=== PATIENT | female | born 1945 | race Caucasian/White ===

== ENCOUNTER → 2016-08-06 | Outpatient (CLI) | payer MEDICARE, MEDICAID ==
[~2016-08-06] VITALS: Ht 167.6 cm; Wt 56.8 kg
[~2016-08-06] MED LIST: CEFTIN 250250 MG/TAB PO; COLACE 100100 MG/CAP PO; DECADRON 4MG TAB4 MG PO; DIFLUCAN 100MG100 MG PO; DULCOLAX S10 MG/SUPP RC; MAG-OX 400400 MG/TAB PO; MEGACE ORAL40 MG/ML PO; MIRALAX PA17 GM/Dose PO; NORCO 325 MG-51 TAB PO; NORVASC 5MG5 MG/TAB PO; PREDNISONE10 MG PO; RT ADVAIR HFA 1112 G IH; RT SPIRIVA18 MCG IH; TIROSINT50 MCG PO; TIROSINT75 MC1 PO; TYLENOL 325MG325 MG PO
[2016-08-06 14:10] VITALS: BP 154/107; PULSE 76
[2016-08-06 15:15] VITALS: BP 147/99; PULSE 71
== END ==
LOC: COL.RAD 13:41
DX: C77.4 Secondary and unspecified malignant neoplasm of inguinal and lower limb lymph nodes (principal); C34.11 Malignant neoplasm of upper lobe, right bronchus or lung; C79.31 Secondary malignant neoplasm of brain; I10 Essential (primary) hypertension
CPT/HCPCS: 13756

== ENCOUNTER → 2016-10-01 | Outpatient (CLI) | payer MEDICARE, MEDICAID | LOC: COL.RAD 09:00 | DX: C34.90 Malignant neoplasm of unspecified part of unspecified bronchus or lung (principal); C79.31 Secondary malignant neoplasm of brain | CPT/HCPCS: A9585 ==

== ENCOUNTER 2016-11-08 10:31 | Inpatient (IN) | payer MEDICARE, MEDICAID ==
[~2016-11-08] VITALS: Ht 165.1 cm; Wt 54.3 kg
[~2016-11-08 10:31] MED LIST changes: -CEFTIN 250250 MG/TAB PO; -COLACE 100100 MG/CAP PO; -DULCOLAX S10 MG/SUPP RC; -MAG-OX 400400 MG/TAB PO; -MEGACE ORAL40 MG/ML PO; -MIRALAX PA17 GM/Dose PO; -NORCO 325 MG-51 TAB PO; -PREDNISONE10 MG PO; -TYLENOL 325MG325 MG PO
[2016-11-08 12:16] LABS: PH 5 (5-8); URINE APPEARANCE Cloudy; URINE BACTERIA Rare /hpf; URINE BILIRUBIN Negative (NEGATIVE); URINE BLOOD 1+ (NEGATIVE); URINE COLOR Amber; URINE GLUCOSE Negative (NEGATIVE); URINE KETONE 1+ (NEGATIVE)
[2016-11-08 12:17] LABS: URINE WBC >50 /hpf
[2016-11-08 12:50] LABS: BASO % 0.4 % (0.0-2.0); EOS % 0.3 % (0-4.0); GRAN # 5.8 (1.4-6.5); GRAN % 74.8 % (42.2-75.2); HEMATOCRIT 38.7 % (37.0-47.0); HEMOGLOBIN 12.7 g/dl (12.5-16.0); LYMPH # 0.8 (1.2-3.4); LYMPH % 10.7 % (20.0-51.0); MEAN CELL VOLUME 107 fl (80.0-100.0); MEAN CORPUSCULAR HEMOGLOBIN 35 pg (27.0-31.0); MEAN CORPUSCULAR HGB CONC 33 g/dl (33.0-37.0); MEAN PLATELET VOLUME 9.3 fl (7.4-10.4); PLATELET COUNT 192 K/mm3 (130-400); RED BLOOD COUNT 3.62 M/mm3 (4.10-5.30); REDCELL DISTRIBUTION WIDTH-CV 14.8 % (11.5-14.5); WHITE BLOOD COUNT 7.7 K/mm3 (4.8-10.8)
[2016-11-08 12:55] LABS: ADJUSTED CALCIUM 9.6 mg/dL (8.4-10.2); ALANINE AMINOTRANSFERASE 17 U/L (9-52); ALBUMIN 3.9 gm/dL (3.5-5.0); ALKALINE PHOSPHATASE 94 U/L (50-136); ANION GAP 14 mmol/L (7-16); BILIRUBIN,TOTAL 0.9 mg/dL (0.0-1.0); BLOOD UREA NITROGEN 22 mg/dL (7-17); C-REACTIVE PROTEIN 0.6 mg/dL (0.0-0.9); CALCIUM 9.5 mg/dL (8.4-10.2); CARBON DIOXIDE 24 mmol/L (22-30); CHLORIDE 105 mmol/L (98-107); CREATININE, serum 0.84 mg/dL (0.52-1.25); GLUCOSE 95 mg/dL (74-106); POTASSIUM 3.8 mmol/L (3.4-5.0); SODIUM 144 mmol/L (137-145)
[2016-11-08 13:06] LABS: TROPONIN-I < 0.012 ng/mL (0.000-0.034)
[2016-11-08 15:49] VITALS: BP 129/77; PULSE 111; TEMP 97.2
[2016-11-08 20:20] VITALS: BP 109/76; PULSE 107; TEMP 97.9
[2016-11-09 00:04] VITALS: BP 114/75; PULSE 112; TEMP 97.7
[2016-11-09 04:25] VITALS: BP 119/84; PULSE 112; TEMP 98.6
[2016-11-09 07:28] LABS: BASO % 0.4 % (0.0-2.0); EOS # 0.1 (0.0-0.7); EOS % 0.6 % (0-4.0); GRAN # 5.4 (1.4-6.5); GRAN % 68.7 % (42.2-75.2); LYMPH # 1.2 (1.2-3.4); LYMPH % 14.9 % (20.0-51.0); MEAN CELL VOLUME 107 fl (80.0-100.0); MEAN CORPUSCULAR HGB CONC 33 g/dl (33.0-37.0); MEAN PLATELET VOLUME 9.6 fl (7.4-10.4); MONO # 1.1 (0.1-0.6); MONO % 14.5 % (1.7-9.3); PLATELET COUNT 183 K/mm3 (130-400); RED BLOOD COUNT 3.36 M/mm3 (4.10-5.30); REDCELL DISTRIBUTION WIDTH-CV 14.8 % (11.5-14.5); WHITE BLOOD COUNT 7.9 K/mm3 (4.8-10.8)
[2016-11-09 07:35] VITALS: BP 128/77; PULSE 117; TEMP 98.5
[2016-11-09 07:42] LABS: HEMATOCRIT 35.9 % (37.0-47.0); HEMOGLOBIN 11.7 g/dl (12.5-16.0); MEAN CORPUSCULAR HEMOGLOBIN 35 pg (27.0-31.0)
[2016-11-09 07:50] LABS: CALCIUM 8.8 mg/dL (8.4-10.2); CREATININE, serum 0.72 mg/dL (0.52-1.25); POTASSIUM 3.8 mmol/L (3.4-5.0)
[2016-11-09 11:36] VITALS: BP 120/84; PULSE 102; TEMP 98
[2016-11-09 15:47] VITALS: BP 135/84; PULSE 113; TEMP 98.6
[2016-11-09 19:55] VITALS: BP 133/90; PULSE 119; TEMP 97.8
[2016-11-10] VITALS (7 sets, daily range): BP systolic 112–140; BP diastolic 66–83; PULSE 107–117; TEMP 97.7–98.6
[2016-11-10] MEDS ORDERED: CEFTIN 250250 MG/TAB PO (10:27)
[2016-11-11 04:19] VITALS: BP 115/69; PULSE 112; TEMP 98.9
[2016-11-11 07:29] VITALS: BP 110/69; PULSE 50; PULSE 88; TEMP 98
[2016-11-11] MEDS ORDERED: CEFTIN 250250 MG/TAB PO (08:42)
[2016-11-11] MEDS ORDERED: MEGACE ORAL40 MG/ML PO (08:43)
[2016-11-11 09:24] VITALS: BP 110/69; PULSE 88; TEMP 98
== END 2016-11-11 09:41 | DRG 690 ==
LOC: COL.ER 10:31 → MEDICAL 13:32
PROVIDERS: Emergency Medicine; Physician Assistant
DX: N39.0 Urinary tract infection, site not specified (principal); C34.91 Malignant neoplasm of unspecified part of right bronchus or lung; E44.0 Moderate protein-calorie malnutrition; C79.31 Secondary malignant neoplasm of brain; I10 Essential (primary) hypertension; E03.9 Hypothyroidism, unspecified; F31.9 Bipolar disorder, unspecified; R53.81 Other malaise; B96.4 Proteus (mirabilis) (morganii) as the cause of diseases classified elsewhere; R53.1 Weakness; Z85.21 Personal history of malignant neoplasm of larynx; Z87.891 Personal history of nicotine dependence; Z92.3 Personal history of irradiation; Z68.20 Body mass index [BMI] 20.0-20.9, adult
CPT/HCPCS: 99222-AI; 99232-AI; 99233-AI; 99239; J0696; J1650; J7030

== ENCOUNTER 2016-11-11 09:49 | Inpatient (IN) | payer MEDICARE, MEDICAID ==
[~2016-11-11] VITALS: Ht 165.1 cm; Wt 52.2 kg
[~2016-11-11 09:49] MED LIST changes: +CEFTIN 250250 MG/TAB PO; +MEGACE ORAL40 MG/ML PO
[2016-11-11 11:16] VITALS: BP 104/74; PULSE 108; TEMP 98.9
[2016-11-11 18:15] VITALS: BP 110/75; PULSE 115; TEMP 98.9
[2016-11-12 05:56] VITALS: BP 116/72; PULSE 110; TEMP 98.7
[2016-11-12 16:48] VITALS: BP 127/79; PULSE 102; TEMP 98.7
[2016-11-13 06:35] VITALS: BP 123/77; PULSE 114; TEMP 99
[2016-11-14 04:40] VITALS: BP 114/74; PULSE 84; TEMP 98.4
[2016-11-15 04:07] VITALS: BP 122/74; PULSE 120; TEMP 99.3
[2016-11-15 07:00] LABS: ADD PATHOLOGY DIFF REVIEW NO
[2016-11-15 07:10] LABS: HEMATOCRIT 37.4 % (37.0-47.0); HEMOGLOBIN 12.6 g/dl (12.5-16.0); MEAN CELL VOLUME 103 fl (80.0-100.0); MEAN CORPUSCULAR HEMOGLOBIN 35 pg (27.0-31.0); MEAN CORPUSCULAR HGB CONC 34 g/dl (33.0-37.0); MEAN PLATELET VOLUME 9.7 fl (7.4-10.4); PLATELET COUNT 233 K/mm3 (130-400); RED BLOOD COUNT 3.62 M/mm3 (4.10-5.30); REDCELL DISTRIBUTION WIDTH-CV 14.2 % (11.5-14.5); WHITE BLOOD COUNT 11.9 K/mm3 (4.8-10.8)
[2016-11-15 07:24] LABS: CALCIUM 9.2 mg/dL (8.4-10.2); CREATININE, serum 0.73 mg/dL (0.52-1.25); MAGNESIUM 1.2 mg/dL (1.6-2.3)
[2016-11-15 07:30] LABS: POTASSIUM 2.7 mmol/L (3.4-5.0)
[2016-11-15 07:49] LABS: BAND 7 % (0-10); EOSINOPHIL 2 % (0-4); NEUTROPHILS 80 % (42.0-75.2); PLATELET ESTIMATE NORMAL (NORMAL); TOTAL CELLS COUNTED 100
[2016-11-15 14:30] VITALS: BP 102/62; PULSE 110; TEMP 97.7
[2016-11-15 18:24] VITALS: BP 116/71; PULSE 73; TEMP 98.4
[2016-11-16 04:19] VITALS: BP 113/83; PULSE 104; TEMP 97.7
[2016-11-16 11:59] VITALS: BP 105/88; PULSE 108; TEMP 98.8
[2016-11-16 16:50] VITALS: BP 119/60; PULSE 116; TEMP 98.6
[2016-11-17 06:11] VITALS: BP 133/80; PULSE 102; TEMP 97.2
[2016-11-17 07:37] LABS: ADD PATHOLOGY DIFF REVIEW NO
[2016-11-17 07:47] LABS: HEMOGLOBIN 10.8 g/dl (12.5-16.0); MEAN CELL VOLUME 104 fl (80.0-100.0); MEAN CORPUSCULAR HEMOGLOBIN 35 pg (27.0-31.0); MEAN CORPUSCULAR HGB CONC 33 g/dl (33.0-37.0); MEAN PLATELET VOLUME 10.3 fl (7.4-10.4); PLATELET COUNT 214 K/mm3 (130-400); REDCELL DISTRIBUTION WIDTH-CV 14.5 % (11.5-14.5); WHITE BLOOD COUNT 8.6 K/mm3 (4.8-10.8)
[2016-11-17 07:48] LABS: HEMATOCRIT 32.3 % (37.0-47.0)
[2016-11-17 07:57] LABS: CALCIUM 8.7 mg/dL (8.4-10.2); CREATININE, serum 0.62 mg/dL (0.52-1.25); MAGNESIUM 1.8 mg/dL (1.6-2.3); POTASSIUM 3.6 mmol/L (3.4-5.0)
[2016-11-17 08:39] LABS: BAND 14 % (0-10); NEUTROPHILS 72 % (42.0-75.2); PLATELET ESTIMATE NORMAL (NORMAL); TOTAL CELLS COUNTED 100
[2016-11-17 08:42] LABS: TOXIC GRANULATION PRESENT
[2016-11-17 12:03] VITALS: BP 137/76; PULSE 95; TEMP 98.4
[2016-11-17 16:58] VITALS: BP 137/86; PULSE 100; TEMP 99.3
[2016-11-18 04:09] VITALS: BP 139/73; PULSE 91; TEMP 97.5
[2016-11-18 12:00] VITALS: BP 106/70; PULSE 112; TEMP 97.2
[2016-11-18 19:00] VITALS: BP 122/65; PULSE 103; TEMP 97
[2016-11-19 04:15] VITALS: BP 129/66; PULSE 100; TEMP 97.8
[2016-11-19] MEDS ORDERED: MAG-OX 400400 MG/TAB PO (08:37)
[2016-11-19] MEDS ORDERED: TYLENOL 325MG325 MG PO (08:37)
[2016-11-19] MEDS ORDERED: MIRALAX PA17 GM/Dose PO (08:37)
[2016-11-19] MEDS ORDERED: PREDNISONE10 MG PO (08:38)
[2016-11-19] MEDS ORDERED: DULCOLAX S10 MG/SUPP RC (08:38)
[2016-11-19] MEDS ORDERED: COLACE 100100 MG/CAP PO (08:38)
[2016-11-19] MEDS ORDERED: NORCO 325 MG-51 TAB PO (08:39)
[2016-11-19 09:10] VITALS: BP 129/66; PULSE 100; TEMP 97.8
== END 2016-11-19 11:00 | DRG 74 ==
LOC: MEDICAL 09:49
PROVIDERS: Internal Medicine
PROC: 02HV33Z Insertion of Infusion Device into Superior Vena Cava, Percutaneous Approach (ICD-10-PCS; principal; 2016-11-15)
DX: G62.0 Drug-induced polyneuropathy (principal); N39.0 Urinary tract infection, site not specified; E44.0 Moderate protein-calorie malnutrition; Z68.1 Body mass index [BMI] 19.9 or less, adult; C79.31 Secondary malignant neoplasm of brain; C34.11 Malignant neoplasm of upper lobe, right bronchus or lung; T45.1X5A Adverse effect of antineoplastic and immunosuppressive drugs, initial encounter; B96.4 Proteus (mirabilis) (morganii) as the cause of diseases classified elsewhere; E87.6 Hypokalemia; F31.9 Bipolar disorder, unspecified; R62.7 Adult failure to thrive
CPT/HCPCS: 99222-AI; 99232-AI; 99233-AI; 99239; C1751; C1894; J1644; J1650; J3475; J3480; J7030; J7512

== ENCOUNTER → 2016-11-22 | Outpatient (REF) ==
[~2016-11-22] MED LIST changes: +COLACE 100100 MG/CAP PO; +DULCOLAX S10 MG/SUPP RC; +MAG-OX 400400 MG/TAB PO; +MIRALAX PA17 GM/Dose PO; +NORCO 325 MG-51 TAB PO; +PREDNISONE10 MG PO; +TYLENOL 325MG325 MG PO
[2016-11-22 14:08] LABS: CALCIUM 8.9 mg/dL (8.4-10.2); CREATININE, serum 0.83 mg/dL (0.52-1.25); MAGNESIUM 1.7 mg/dL (1.6-2.3); POTASSIUM 3.8 mmol/L (3.4-5.0)
== END ==
LOC: ZCOL.LAB 13:43
PROVIDERS: Family Medicine
DX: Z01.89 Encounter for other specified special examinations (principal)

== ENCOUNTER → 2016-12-15 | Outpatient (REF) | LOC: ZAIV 12-14 06:00 | DX: Z02.89 Encounter for other administrative examinations (principal) ==